=== PATIENT | female | born 1940 ===

== ENCOUNTER 2024-06-24 11:22 | Outpatient (CLI) | payer OTHER | END 2024-06-24 14:06 | disposition home or self-care (01) | LOC: EDBD 11:22 → MRI 11:22 | PROVIDERS: ATTEND Neurological Surgery | DX: G50.0 Trigeminal neuralgia (principal); G51.0 Bell's palsy; N18.4 Chronic kidney disease, stage 4 (severe); M48.02 Spinal stenosis, cervical region; M54.2 Cervicalgia | CPT/HCPCS: 70551; 72141 ==